=== PATIENT | male | born 1980 | race Caucasian/White ===

== ENCOUNTER 2018-10-29 11:26 | Emergency (ER) | payer OTHER ==
[~2018-10-29] VITALS: Ht 185.4 cm; Wt 101.1 kg
[2018-10-29 11:31] VITALS: Ht 185.4 cm; Wt 101.1 kg
[2018-10-29] MEDS ORDERED: AMOX1TAB10 PO (13:49)
[2018-10-29 13:58] VITALS: BP 144/82; PULSE 79; RESP 20
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
== END 2018-10-29 14:45 | disposition home or self-care (01) ==
LOC: FTE 11:26
DX: H92.01 Otalgia, right ear (principal)
CPT/HCPCS: 99283